=== PATIENT | male | born 1930 | race Caucasian/White ===

== ENCOUNTER 2020-04-08 21:27 | Inpatient (IN) | payer OTHER ==
[2020-04-08] MEDS ORDERED: SODIUM CHLORIDE 500 ML IV STA (21:42)
[2020-04-08] MEDS ORDERED: ACETAMINOPHEN 1000 MG/100 ML VIAL (NON FORMULARY) IVPB ONE (21:49)
[2020-04-08 22:30] LABS: BASO % 0.3 % (0-2.0); HEMOGLOBIN 10.7 GM/dL (11.7-16.9); LYMPH % 8.7 % (8-40); MCH 29.8 pg (25.7-33.7); MCHC 33.5 g/dl (32.0-35.9); MEAN CELL VOLUME 89.1 fl (80-96); MEAN PLT VOLUME 6.4 fl (7.5-11.1); MONO % 8.4 % (3.8-10.2); NEUT % 82.6 % (42.8-82.8); PLATELET COUNT 116 K/MM3 (134-434); RDW 13.4 % (11.9-15.9); WHITE BLOOD COUNT 4.7 K/mm3 (4.0-10.0)
[2020-04-08 22:55] LABS: CHLORIDE 109 mmol/L (98-107); POTASSIUM 4.4 mmol/L (3.5-5.1); SODIUM 138 mmol/L (136-145)
[2020-04-08 22:58] LABS: ALBUMIN 3.2 g/dl (3.4-5.0); ANION GAP 13 MMOL/L (8-16); BLOOD UREA NITROGEN 23.8 mg/dL (7-18); CO2 16 mmol/L (21-32); GLUCOSE,RANDOM 185 mg/dL (74-106); MAGNESIUM 1.9 mg/dL (1.8-2.4)
[2020-04-08 23:01] LABS: CREATININE 1.6 mg/dL (0.55-1.3); SGOT/AST 39 U/L (15-37); SGPT/ALT 35 U/L (13-61)
[2020-04-08 23:02] LABS: LDH 281 U/L (87-246)
[2020-04-08 23:03] LABS: BILIRUBIN,TOTAL 0.3 mg/dL (0.2-1); TOT PROT 6.4 g/dl (6.4-8.2)
[2020-04-08 23:07] LABS: ALK PHOS 36 U/L (45-117)
[2020-04-08 23:25] LABS: INR 1.38 (0.83-1.09); PROTHROMBIN TIME (PATIENT) 16.5 SEC (9.7-13.0)
[2020-04-08 23:28] LABS: ACTIVATED PTT 29.1 SECONDS (25.2-36.5)
[2020-04-09] MEDS ORDERED: SODIUM CHLORIDE 500 ML IV STA (00:22)
[2020-04-09] MEDS ORDERED: DEXAMETHASONE SOD PHOSPHATE 10 MG/1 ML VIAL IVPUSH ONE (00:24)
[2020-04-09] MEDS ORDERED: DEXAMETHASONE SOD PHOSPHATE 10 MG/1 ML VIAL ONE (01:02)
[2020-04-09] MEDS: INSULIN SLIDING SCALE (NOVOLOG) 1 VIAL SQ SCH ×3 (04:32→17:45)
[2020-04-09 04:56] LABS: EPI CELLS 4 /uL (0-25.1); HYALINE CASTS 1 /uL (0-3.1); URINE APPEARANCE CLEAR; URINE BACTERIA 43 /uL (0-1359); URINE BILIRUBIN NEGATIVE (NEGATIVE); URINE COLOR YELLOW; URINE GLUCOSE (UA) NEGATIVE (NEGATIVE); URINE KETONE NEGATIVE (NEGATIVE); URINE LEUK ESTERASE NEGATIVE (NEGATIVE); URINE NITRITE NEGATIVE (NEGATIVE); URINE PROTEIN 1+ (NEGATIVE); URINE RBC 10 /uL (0-23.9); URINE UROBILINOGEN 0.2 mg/dL (0.2-1.0); URINE WBC 3 /uL (0-25.8)
[2020-04-09 10:42] LABS: BASO % 0.3 % (0-2.0); HEMOGLOBIN 11.6 GM/dL (11.7-16.9); LYMPH % 9.8 % (8-40); MCH 29.8 pg (25.7-33.7); MCHC 33.2 g/dl (32.0-35.9); MEAN CELL VOLUME 89.6 fl (80-96); MEAN PLT VOLUME 6.4 fl (7.5-11.1); MONO % 3.8 % (3.8-10.2); NEUT % 86.1 % (42.8-82.8); PLATELET COUNT 115 K/MM3 (134-434); RBC 3.91 M/mm3 (4.00-5.60); RDW 13.5 % (11.9-15.9)
[2020-04-09 11:10] LABS: POTASSIUM 4.5 mmol/L (3.5-5.1)
[2020-04-09 11:16] LABS: ALBUMIN 3.2 g/dl (3.4-5.0); BLOOD UREA NITROGEN 20.2 mg/dL (7-18); CALCIUM 8.2 mg/dL (8.5-10.1)
[2020-04-09 11:18] LABS: CREATININE 1.3 mg/dL (0.55-1.3)
[2020-04-09 11:20] LABS: BILIRUBIN,TOTAL 0.4 mg/dL (0.2-1); TOT PROT 6.8 g/dl (6.4-8.2)
[2020-04-09] MEDS: ENOXAPARIN NA (PORCINE) 40 MG/0.4 ML DISP.SYRIN SQ SCH (12:23)
[2020-04-09] MEDS ORDERED: REMDESIVIR 200 MG in SODIUM CHLORIDE 210 ML IVPB ONE (16:00)
[2020-04-09] MEDS ORDERED: SODIUM CHLORIDE 1,000 ML IV SCH (16:15)
[2020-04-10] MEDS ORDERED: ACETAMINOPHEN 325 MG TABLET (FP) PO PRN (00:41)
[2020-04-10] MEDS: INSULIN SLIDING SCALE (NOVOLOG) 1 VIAL SQ SCH ×5 (01:05→21:36)
[2020-04-10 08:39] LABS: HEMATOCRIT 33.7 % (35.4-49); HEMOGLOBIN 11.6 GM/dL (11.7-16.9); MCH 30.1 pg (25.7-33.7); MCHC 34.3 g/dl (32.0-35.9); MEAN CELL VOLUME 87.6 fl (80-96); MEAN PLT VOLUME 6.6 fl (7.5-11.1); PLATELET COUNT 126 K/MM3 (134-434); RBC 3.84 M/mm3 (4.00-5.60); RDW 13.1 % (11.9-15.9); WHITE BLOOD COUNT 6.1 K/mm3 (4.0-10.0)
[2020-04-10 08:56] LABS: CHLORIDE 108 mmol/L (98-107); POTASSIUM 3.8 mmol/L (3.5-5.1); SODIUM 140 mmol/L (136-145)
[2020-04-10 09:04] LABS: ALBUMIN 3.2 g/dl (3.4-5.0); ANION GAP 8 MMOL/L (8-16); BLOOD UREA NITROGEN 16.1 mg/dL (7-18); CALCIUM 8.4 mg/dL (8.5-10.1); CO2 24 mmol/L (21-32); GLUCOSE,RANDOM 172 mg/dL (74-106)
[2020-04-10 09:07] LABS: ALK PHOS 39 U/L (45-117); CREATININE 0.9 mg/dL (0.55-1.3); PHOSPHOROUS 2.5 mg/dL (2.5-4.9); SGOT/AST 70 U/L (15-37); SGPT/ALT 45 U/L (13-61)
[2020-04-10 09:08] LABS: LDH 242 U/L (87-246)
[2020-04-10 09:09] LABS: BILIRUBIN,TOTAL 0.5 mg/dL (0.2-1); TOT PROT 6.6 g/dl (6.4-8.2)
[2020-04-10] MEDS: PANTOPRAZOLE 40 MG TABLET PO SCH (10:25)
[2020-04-10] MEDS: ENOXAPARIN NA (PORCINE) 40 MG/0.4 ML DISP.SYRIN SQ SCH (10:26)
[2020-04-10] MEDS: DEXAMETHASONE SOD PHOSPHATE 4 MG/1 ML VIAL IVPUSH SCH (10:26)
[2020-04-10] MEDS ORDERED: ALBUTEROL SO4 HFA INHALER IH PRN (11:02)
[2020-04-10] MEDS: amLODIPine BESYLATE 10 MG TABLET (FP) PO SCH (11:50)
[2020-04-10] MEDS: LOSARTAN POTASSIUM 50 MG TABLET PO SCH (11:50)
[2020-04-10] MEDS: REMDESIVIR 100 MG in SODIUM CHLORIDE 230 ML IVPB SCH (15:39)
[2020-04-10] MEDS: LACTATED RINGERS SOLUTION 1,000 ML/1,000 ML INFUS.BAG IV SCH (15:48)
[2020-04-11] MEDS: INSULIN SLIDING SCALE (NOVOLOG) 1 VIAL SQ SCH ×4 (06:01→21:56)
[2020-04-11 07:38] LABS: BASO % 0.1 % (0-2.0); HEMATOCRIT 33.7 % (35.4-49); HEMOGLOBIN 11.5 GM/dL (11.7-16.9); LYMPH % 6.6 % (8-40); MCHC 34.1 g/dl (32.0-35.9); MEAN CELL VOLUME 87.9 fl (80-96); MEAN PLT VOLUME 6.7 fl (7.5-11.1); MONO % 6.3 % (3.8-10.2); PLATELET COUNT 132 K/MM3 (134-434); RBC 3.83 M/mm3 (4.00-5.60); RDW 13.7 % (11.9-15.9); WHITE BLOOD COUNT 6.5 K/mm3 (4.0-10.0)
[2020-04-11 08:02] LABS: CALCIUM 8.5 mg/dL (8.5-10.1)
[2020-04-11 08:03] LABS: ALBUMIN 2.9 g/dl (3.4-5.0); BLOOD UREA NITROGEN 21.6 mg/dL (7-18)
[2020-04-11 08:04] LABS: BILIRUBIN,TOTAL 0.5 mg/dL (0.2-1)
[2020-04-11 08:05] LABS: TOT PROT 6.3 g/dl (6.4-8.2)
[2020-04-11 08:06] LABS: CREATININE 0.8 mg/dL (0.55-1.3); PHOSPHOROUS 3.3 mg/dL (2.5-4.9)
[2020-04-11] MEDS: DEXAMETHASONE SOD PHOSPHATE 4 MG/1 ML VIAL IVPUSH SCH (09:22)
[2020-04-11] MEDS: amLODIPine BESYLATE 10 MG TABLET (FP) PO SCH (09:22)
[2020-04-11] MEDS: PANTOPRAZOLE 40 MG TABLET PO SCH (09:22)
[2020-04-11] MEDS: LOSARTAN POTASSIUM 50 MG TABLET PO SCH (09:22)
[2020-04-11] MEDS: ENOXAPARIN NA (PORCINE) 40 MG/0.4 ML DISP.SYRIN SQ SCH (09:22)
[2020-04-11] MEDS: LACTATED RINGERS SOLUTION 1,000 ML/1,000 ML INFUS.BAG IV SCH (14:30)
[2020-04-11] MEDS: REMDESIVIR 100 MG in SODIUM CHLORIDE 230 ML IVPB SCH (17:00)
[2020-04-12] MEDS: INSULIN SLIDING SCALE (NOVOLOG) 1 VIAL SQ SCH ×4 (06:32→21:20)
[2020-04-12] MEDS: LACTATED RINGERS SOLUTION 1,000 ML/1,000 ML INFUS.BAG IV SCH (06:39)
[2020-04-12 08:56] LABS: HEMATOCRIT 34.5 % (35.4-49); HEMOGLOBIN 11.9 GM/dL (11.7-16.9); LYMPH % 3.7 % (8-40); MCH 29.9 pg (25.7-33.7); MCHC 34.5 g/dl (32.0-35.9); MEAN CELL VOLUME 86.6 fl (80-96); MEAN PLT VOLUME 6.8 fl (7.5-11.1); MONO % 4.7 % (3.8-10.2); NEUT % 91.6 % (42.8-82.8); PLATELET COUNT 151 K/MM3 (134-434); RBC 3.98 M/mm3 (4.00-5.60); RDW 13.2 % (11.9-15.9); WHITE BLOOD COUNT 9.4 K/mm3 (4.0-10.0)
[2020-04-12 09:50] LABS: ALBUMIN 2.8 g/dl (3.4-5.0); BLOOD UREA NITROGEN 23.3 mg/dL (7-18); CALCIUM 8.5 mg/dL (8.5-10.1)
[2020-04-12 09:51] LABS: MAGNESIUM 2.2 mg/dL (1.8-2.4)
[2020-04-12 09:52] LABS: PHOSPHOROUS 2.6 mg/dL (2.5-4.9)
[2020-04-12 09:53] LABS: CREATININE 0.8 mg/dL (0.55-1.3)
[2020-04-12 09:54] LABS: BILIRUBIN,TOTAL 0.5 mg/dL (0.2-1); TOT PROT 6.2 g/dl (6.4-8.2)
[2020-04-12] MEDS: PANTOPRAZOLE 40 MG TABLET PO SCH (10:15)
[2020-04-12] MEDS: DEXAMETHASONE SOD PHOSPHATE 4 MG/1 ML VIAL IVPUSH SCH (10:15)
[2020-04-12] MEDS: ENOXAPARIN NA (PORCINE) 40 MG/0.4 ML DISP.SYRIN SQ SCH (10:15)
[2020-04-12] MEDS: LOSARTAN POTASSIUM 50 MG TABLET PO SCH (10:15)
[2020-04-12] MEDS: amLODIPine BESYLATE 10 MG TABLET (FP) PO SCH (10:15)
[2020-04-12 10:40] LABS: POTASSIUM 4.1 mmol/L (3.5-5.1)
[2020-04-12 11:15] LABS: ANISOCYTOSIS 0; MACROCYTOSIS 0; PLATELET ESTIMATE DECREASED
[2020-04-12] MEDS ORDERED: PT OWN MED DRAWER 7, Y5N ONE (16:06)
[2020-04-12] MEDS: REMDESIVIR 100 MG in SODIUM CHLORIDE 230 ML IVPB SCH (17:03)
[2020-04-12] MEDS: INSULIN (LEVEMIR) 100 UNITS/ML UNITS SQ SCH (21:20)
[2020-04-13 00:50] LABS: EPI CELLS 4 /uL (0-25.1); HYALINE CASTS 0 /uL (0-3.1); URINE APPEARANCE CLEAR; URINE BACTERIA 4207 /uL (0-1359); URINE BILIRUBIN NEGATIVE (NEGATIVE); URINE COLOR YELLOW; URINE GLUCOSE (UA) 2+ (NEGATIVE); URINE KETONE NEGATIVE (NEGATIVE); URINE LEUK ESTERASE NEGATIVE (NEGATIVE); URINE NITRITE NEGATIVE (NEGATIVE); URINE PROTEIN 1+ (NEGATIVE); URINE RBC 2 /uL (0-23.9); URINE WBC 4 /uL (0-25.8)
[2020-04-13] MEDS: INSULIN SLIDING SCALE (NOVOLOG) 1 VIAL SQ SCH ×4 (06:13→21:48)
[2020-04-13] MEDS: INSULIN (LEVEMIR) 100 UNITS/ML UNITS SQ SCH ×2 (06:15→21:44)
[2020-04-13 07:02] LABS: HEMATOCRIT 35.4 % (35.4-49); HEMOGLOBIN 12.1 GM/dL (11.7-16.9); LYMPH % 4.4 % (8-40); MCH 29.8 pg (25.7-33.7); MCHC 34.2 g/dl (32.0-35.9); MEAN CELL VOLUME 87.1 fl (80-96); MEAN PLT VOLUME 6.7 fl (7.5-11.1); NEUT % 90.6 % (42.8-82.8); PLATELET COUNT 170 K/MM3 (134-434); RBC 4.06 M/mm3 (4.00-5.60); RDW 13.4 % (11.9-15.9); WHITE BLOOD COUNT 10.3 K/mm3 (4.0-10.0)
[2020-04-13 07:20] LABS: POTASSIUM 3.8 mmol/L (3.5-5.1)
[2020-04-13 07:27] LABS: ALBUMIN 2.8 g/dl (3.4-5.0); CALCIUM 8.2 mg/dL (8.5-10.1); MAGNESIUM 2.2 mg/dL (1.8-2.4)
[2020-04-13 07:29] LABS: CREATININE 0.8 mg/dL (0.55-1.3)
[2020-04-13 07:30] LABS: PHOSPHOROUS 2.6 mg/dL (2.5-4.9)
[2020-04-13 07:31] LABS: BILIRUBIN,TOTAL 0.6 mg/dL (0.2-1); TOT PROT 6.2 g/dl (6.4-8.2)
[2020-04-13] MEDS: LOSARTAN POTASSIUM 50 MG TABLET PO SCH (09:50)
[2020-04-13] MEDS: PANTOPRAZOLE 40 MG TABLET PO SCH (09:50)
[2020-04-13] MEDS: DEXAMETHASONE SOD PHOSPHATE 4 MG/1 ML VIAL IVPUSH SCH (09:51)
[2020-04-13] MEDS: ENOXAPARIN NA (PORCINE) 40 MG/0.4 ML DISP.SYRIN SQ SCH (09:52)
[2020-04-13] MEDS: amLODIPine BESYLATE 10 MG TABLET (FP) PO SCH (09:53)
[2020-04-13] MEDS ORDERED: ALBUTEROL SO4 HFA INHALER IH PRN (12:39)
[2020-04-13] MEDS ORDERED: ACETAMINOPHEN 325 MG TABLET (FP) PO PRN (12:39)
[2020-04-13] MEDS ORDERED: REMDESIVIR 100 MG in SODIUM CHLORIDE 230 ML IVPB SCH (16:00)
[2020-04-13] MEDS: REMDESIVIR 100 MG in SODIUM CHLORIDE 230 ML IVPB SCH (16:47)
[2020-04-14] MEDS: INSULIN (LEVEMIR) 100 UNITS/ML UNITS SQ SCH ×2 (06:10→22:25)
[2020-04-14] MEDS: INSULIN SLIDING SCALE (NOVOLOG) 1 VIAL SQ SCH ×4 (06:11→22:24)
[2020-04-14] MEDS: DEXAMETHASONE SOD PHOSPHATE 4 MG/1 ML VIAL IVPUSH SCH (10:16)
[2020-04-14] MEDS: PANTOPRAZOLE 40 MG TABLET PO SCH (10:16)
[2020-04-14] MEDS: LOSARTAN POTASSIUM 50 MG TABLET PO SCH (10:16)
[2020-04-14] MEDS: amLODIPine BESYLATE 10 MG TABLET (FP) PO SCH (10:16)
[2020-04-14] MEDS: ENOXAPARIN NA (PORCINE) 40 MG/0.4 ML DISP.SYRIN SQ SCH (10:16)
[2020-04-15] MEDS: INSULIN SLIDING SCALE (NOVOLOG) 1 VIAL SQ SCH ×4 (06:29→21:20)
[2020-04-15] MEDS: INSULIN (LEVEMIR) 100 UNITS/ML UNITS SQ SCH ×2 (06:29→21:20)
[2020-04-15 08:24] LABS: HEMATOCRIT 38.1 % (35.4-49); HEMOGLOBIN 13.2 GM/dL (11.7-16.9); MCH 29.9 pg (25.7-33.7); MCHC 34.7 g/dl (32.0-35.9); MEAN CELL VOLUME 86.2 fl (80-96); PLATELET COUNT 247 K/MM3 (134-434); RBC 4.42 M/mm3 (4.00-5.60); RDW 13.5 % (11.9-15.9); WHITE BLOOD COUNT 10.4 K/mm3 (4.0-10.0)
[2020-04-15 08:41] LABS: POTASSIUM 4.5 mmol/L (3.5-5.1)
[2020-04-15 08:48] LABS: ALBUMIN 2.9 g/dl (3.4-5.0)
[2020-04-15 08:49] LABS: BLOOD UREA NITROGEN 27.6 mg/dL (7-18); CALCIUM 8.7 mg/dL (8.5-10.1)
[2020-04-15 08:50] LABS: MAGNESIUM 2.5 mg/dL (1.8-2.4)
[2020-04-15 08:52] LABS: PHOSPHOROUS 3.1 mg/dL (2.5-4.9)
[2020-04-15 08:54] LABS: BILIRUBIN,TOTAL 0.6 mg/dL (0.2-1); CREATININE 0.9 mg/dL (0.55-1.3); TOT PROT 6.6 g/dl (6.4-8.2)
[2020-04-15] MEDS ORDERED: PT OWN MED DRAWER 7, Y5N ONE (10:20)
[2020-04-15] MEDS: DEXAMETHASONE SOD PHOSPHATE 4 MG/1 ML VIAL IVPUSH SCH (10:31)
[2020-04-15] MEDS: ENOXAPARIN NA (PORCINE) 40 MG/0.4 ML DISP.SYRIN SQ SCH (10:31)
[2020-04-15] MEDS: LOSARTAN POTASSIUM 50 MG TABLET PO SCH (10:32)
[2020-04-15] MEDS: amLODIPine BESYLATE 10 MG TABLET (FP) PO SCH (10:32)
[2020-04-15] MEDS: PANTOPRAZOLE 40 MG TABLET PO SCH (10:32)
[2020-04-15 16:31] VITALS: BMI 26.6
[2020-04-16] MEDS: INSULIN (LEVEMIR) 100 UNITS/ML UNITS SQ SCH ×2 (06:22→21:15)
[2020-04-16] MEDS: INSULIN SLIDING SCALE (NOVOLOG) 1 VIAL SQ SCH ×4 (06:22→21:15)
[2020-04-16] MEDS: PANTOPRAZOLE 40 MG TABLET PO SCH (09:33)
[2020-04-16] MEDS: amLODIPine BESYLATE 10 MG TABLET (FP) PO SCH (09:33)
[2020-04-16] MEDS: DEXAMETHASONE SOD PHOSPHATE 4 MG/1 ML VIAL IVPUSH SCH (09:34)
[2020-04-16] MEDS: LOSARTAN POTASSIUM 50 MG TABLET PO SCH (09:34)
[2020-04-16] MEDS: ENOXAPARIN NA (PORCINE) 40 MG/0.4 ML DISP.SYRIN SQ SCH (09:34)
[2020-04-17] MEDS: INSULIN (LEVEMIR) 100 UNITS/ML UNITS SQ SCH ×2 (06:10→22:28)
[2020-04-17] MEDS: INSULIN SLIDING SCALE (NOVOLOG) 1 VIAL SQ SCH ×4 (06:11→22:27)
[2020-04-17] MEDS ORDERED: INSULIN (NOVOLOG) ASPART 100 UNITS/ML 10ML VIAL ONE ×2 (06:29→16:52)
[2020-04-17] MEDS: ENOXAPARIN NA (PORCINE) 40 MG/0.4 ML DISP.SYRIN SQ SCH (10:54)
[2020-04-17] MEDS: DEXAMETHASONE SOD PHOSPHATE 4 MG/1 ML VIAL IVPUSH SCH (10:55)
[2020-04-17] MEDS: LOSARTAN POTASSIUM 50 MG TABLET PO SCH (10:55)
[2020-04-17] MEDS: amLODIPine BESYLATE 10 MG TABLET (FP) PO SCH (10:56)
[2020-04-17] MEDS: PANTOPRAZOLE 40 MG TABLET PO SCH (10:56)
[2020-04-18] MEDS: INSULIN SLIDING SCALE (NOVOLOG) 1 VIAL SQ SCH ×4 (06:19→21:35)
[2020-04-18] MEDS: INSULIN (LEVEMIR) 100 UNITS/ML UNITS SQ SCH ×2 (06:20→21:36)
[2020-04-18 08:53] LABS: HEMATOCRIT 38.3 % (35.4-49); HEMOGLOBIN 13.1 GM/dL (11.7-16.9); MCH 29.6 pg (25.7-33.7); MCHC 34.2 g/dl (32.0-35.9); MEAN CELL VOLUME 86.4 fl (80-96); MEAN PLT VOLUME 6.6 fl (7.5-11.1); PLATELET COUNT 271 K/MM3 (134-434); RBC 4.43 M/mm3 (4.00-5.60); RDW 13.1 % (11.9-15.9)
[2020-04-18 09:00] LABS: POTASSIUM 4.4 mmol/L (3.5-5.1)
[2020-04-18 09:04] LABS: ALBUMIN 2.7 g/dl (3.4-5.0); BLOOD UREA NITROGEN 29.8 mg/dL (7-18); CALCIUM 8.7 mg/dL (8.5-10.1)
[2020-04-18 09:09] LABS: BILIRUBIN,TOTAL 0.6 mg/dL (0.2-1); TOT PROT 6.3 g/dl (6.4-8.2)
[2020-04-18] MEDS ORDERED: PT OWN MED DRAWER 7, Y5N ONE ×2 (09:11→12:32)
[2020-04-18] MEDS: ENOXAPARIN NA (PORCINE) 40 MG/0.4 ML DISP.SYRIN SQ SCH (09:15)
[2020-04-18] MEDS: amLODIPine BESYLATE 10 MG TABLET (FP) PO SCH (09:16)
[2020-04-18] MEDS: PANTOPRAZOLE 40 MG TABLET PO SCH (09:16)
[2020-04-18] MEDS: LOSARTAN POTASSIUM 50 MG TABLET PO SCH (09:16)
[2020-04-18] MEDS: DEXAMETHASONE SOD PHOSPHATE 4 MG/1 ML VIAL IVPUSH SCH (09:16)
[2020-04-18] MEDS: BUDESONIDE/FORMETEROL FUMARATE 160/4.5 mcg INHALER IH SCH ×2 (12:35→21:30)
[2020-04-18] MEDS: ALBUTEROL SO4 HFA INHALER IH SCH ×3 (12:50→21:30)
[2020-04-19] MEDS: INSULIN SLIDING SCALE (NOVOLOG) 1 VIAL SQ SCH ×4 (06:36→21:58)
[2020-04-19] MEDS: INSULIN (LEVEMIR) 100 UNITS/ML UNITS SQ SCH ×2 (06:36→21:58)
[2020-04-19 07:47] LABS: HEMOGLOBIN 13.5 GM/dL (11.7-16.9); MCH 29.9 pg (25.7-33.7); MCHC 33.9 g/dl (32.0-35.9); MEAN CELL VOLUME 88.3 fl (80-96); MEAN PLT VOLUME 6.5 fl (7.5-11.1); PLATELET COUNT 252 K/MM3 (134-434); RBC 4.53 M/mm3 (4.00-5.60); RDW 13.4 % (11.9-15.9); WHITE BLOOD COUNT 14.7 K/mm3 (4.0-10.0)
[2020-04-19 08:11] LABS: POTASSIUM 5.3 mmol/L (3.5-5.1)
[2020-04-19 08:13] LABS: ALBUMIN 2.8 g/dl (3.4-5.0); BLOOD UREA NITROGEN 31.4 mg/dL (7-18); CALCIUM 9.1 mg/dL (8.5-10.1); MAGNESIUM 2.5 mg/dL (1.8-2.4)
[2020-04-19 08:16] LABS: CREATININE 1.1 mg/dL (0.55-1.3)
[2020-04-19 08:18] LABS: BILIRUBIN,TOTAL 0.6 mg/dL (0.2-1); TOT PROT 6.5 g/dl (6.4-8.2)
[2020-04-19] MEDS: ALBUTEROL SO4 HFA INHALER IH SCH ×4 (08:30→21:57)
[2020-04-19] MEDS ORDERED: PT OWN MED DRAWER 7, Y5N ONE (10:45)
[2020-04-19] MEDS: ENOXAPARIN NA (PORCINE) 40 MG/0.4 ML DISP.SYRIN SQ SCH (10:51)
[2020-04-19] MEDS: DEXAMETHASONE SOD PHOSPHATE 4 MG/1 ML VIAL IVPUSH SCH (10:51)
[2020-04-19] MEDS: amLODIPine BESYLATE 10 MG TABLET (FP) PO SCH (10:52)
[2020-04-19] MEDS: PANTOPRAZOLE 40 MG TABLET PO SCH (10:52)
[2020-04-19] MEDS: BUDESONIDE/FORMETEROL FUMARATE 160/4.5 mcg INHALER IH SCH ×2 (10:52→21:58)
[2020-04-19] MEDS: LOSARTAN POTASSIUM 50 MG TABLET PO SCH (10:52)
[2020-04-19] MEDS ORDERED: ALBUTEROL SO4 0.042% IH SOL 1.25 MG/3 ML VIAL.NEB NEB ONE (12:33)
[2020-04-19] MEDS ORDERED: SODIUM ZIRCONIUM CYCLOSILICATE (LOKELMA) 10 GM PACKET PO ONE (13:25)
[2020-04-19] MEDS ORDERED: SODIUM CHLORIDE 0.45% 1,000 ML IV SCH (13:30)
[2020-04-19] MEDS: AMINO ACIDS/PROTEIN HYDROLYS 30 ML LIQUID.PKT PO SCH (17:27)
[2020-04-20] MEDS: INSULIN SLIDING SCALE (NOVOLOG) 1 VIAL SQ SCH ×4 (06:21→21:21)
[2020-04-20] MEDS: INSULIN (LEVEMIR) 100 UNITS/ML UNITS SQ SCH ×2 (06:21→21:22)
[2020-04-20 09:03] LABS: POTASSIUM 4.2 mmol/L (3.5-5.1)
[2020-04-20 09:15] LABS: CALCIUM 8.5 mg/dL (8.5-10.1)
[2020-04-20 09:17] LABS: ALBUMIN 2.4 g/dl (3.4-5.0); BLOOD UREA NITROGEN 33.4 mg/dL (7-18)
[2020-04-20 09:20] LABS: CREATININE 0.9 mg/dL (0.55-1.3)
[2020-04-20 09:22] LABS: TOT PROT 5.6 g/dl (6.4-8.2)
[2020-04-20] MEDS: AMINO ACIDS/PROTEIN HYDROLYS 30 ML LIQUID.PKT PO SCH ×2 (09:48→17:17)
[2020-04-20] MEDS: ENOXAPARIN NA (PORCINE) 40 MG/0.4 ML DISP.SYRIN SQ SCH (09:49)
[2020-04-20] MEDS: ALBUTEROL SO4 HFA INHALER IH SCH ×4 (09:49→21:22)
[2020-04-20] MEDS: DEXAMETHASONE SOD PHOSPHATE 4 MG/1 ML VIAL IVPUSH SCH (09:49)
[2020-04-20] MEDS: amLODIPine BESYLATE 10 MG TABLET (FP) PO SCH (09:49)
[2020-04-20] MEDS: BUDESONIDE/FORMETEROL FUMARATE 160/4.5 mcg INHALER IH SCH ×2 (09:50→21:23)
[2020-04-20] MEDS: MULTIVITAMINS THER W-MINERALS COMBO TABLET (FP) PO SCH (09:50)
[2020-04-20] MEDS: PANTOPRAZOLE 40 MG TABLET PO SCH (09:50)
[2020-04-20] MEDS ORDERED: cefTRIAXone SODIUM 1 GM VIAL ONE (13:42)
[2020-04-20] MEDS ORDERED: DEXTROSE 5%-WATER - 50 ML IVPB ONE (13:43)
[2020-04-20] MEDS: CEFTRIAXONE 1 GM in DEXTROSE 5%-WATER - 50 ML IVPB SCH (14:01)
[2020-04-20] MEDS ORDERED: PT OWN MED DRAWER 7, Y5N ONE (20:44)
[2020-04-20] MEDS ORDERED: DOXYCYCLINE INJECTION 100 MG in DEXTROSE 5%-WATER - 100 ML IVPB SCH (22:00)
[2020-04-21] MEDS: INSULIN SLIDING SCALE (NOVOLOG) 1 VIAL SQ SCH ×4 (06:36→21:45)
[2020-04-21] MEDS: INSULIN (LEVEMIR) 100 UNITS/ML UNITS SQ SCH ×2 (06:37→21:45)
[2020-04-21 08:51] LABS: HEMATOCRIT 37.9 % (35.4-49); HEMOGLOBIN 12.7 GM/dL (11.7-16.9); MCH 29.5 pg (25.7-33.7); MCHC 33.6 g/dl (32.0-35.9); MEAN CELL VOLUME 87.6 fl (80-96); MEAN PLT VOLUME 7.3 fl (7.5-11.1); PLATELET COUNT 196 K/MM3 (134-434); RBC 4.32 M/mm3 (4.00-5.60); RDW 13.2 % (11.9-15.9); WHITE BLOOD COUNT 10.1 K/mm3 (4.0-10.0)
[2020-04-21 09:18] LABS: CHLORIDE 102 mmol/L (98-107); POTASSIUM 4.8 mmol/L (3.5-5.1); SODIUM 138 mmol/L (136-145)
[2020-04-21 09:21] LABS: CALCIUM 8.7 mg/dL (8.5-10.1)
[2020-04-21 09:22] LABS: ALBUMIN 2.5 g/dl (3.4-5.0); ANION GAP 5 MMOL/L (8-16); BLOOD UREA NITROGEN 34.2 mg/dL (7-18); CO2 31 mmol/L (21-32); GLUCOSE,RANDOM 147 mg/dL (74-106)
[2020-04-21 09:25] LABS: SGOT/AST 17 U/L (15-37); SGPT/ALT 54 U/L (13-61)
[2020-04-21 09:26] LABS: BILIRUBIN,TOTAL 0.9 mg/dL (0.2-1); TOT PROT 5.9 g/dl (6.4-8.2)
[2020-04-21 09:27] LABS: ALK PHOS 42 U/L (45-117)
[2020-04-21 09:46] LABS: LDH 240 U/L (87-246)
[2020-04-21] MEDS ORDERED: PT OWN MED DRAWER 7, Y5N ONE (10:21)
[2020-04-21] MEDS ORDERED: DEXTROSE 5%-WATER - 50 ML IVPB ONE (10:21)
[2020-04-21] MEDS ORDERED: cefTRIAXone SODIUM 1 GM VIAL ONE (10:21)
[2020-04-21] MEDS: AMINO ACIDS/PROTEIN HYDROLYS 30 ML LIQUID.PKT PO SCH ×2 (10:43→17:33)
[2020-04-21] MEDS: ALBUTEROL SO4 HFA INHALER IH SCH ×4 (10:43→21:46)
[2020-04-21] MEDS: BUDESONIDE/FORMETEROL FUMARATE 160/4.5 mcg INHALER IH SCH ×2 (10:44→21:50)
[2020-04-21] MEDS: CEFTRIAXONE 1 GM in DEXTROSE 5%-WATER - 50 ML IVPB SCH (10:44)
[2020-04-21] MEDS: amLODIPine BESYLATE 10 MG TABLET (FP) PO SCH (10:44)
[2020-04-21] MEDS: DEXAMETHASONE SOD PHOSPHATE 4 MG/1 ML VIAL IVPUSH SCH (10:44)
[2020-04-21] MEDS: PANTOPRAZOLE 40 MG TABLET PO SCH (10:44)
[2020-04-21] MEDS: MULTIVITAMINS THER W-MINERALS COMBO TABLET (FP) PO SCH (10:44)
[2020-04-21] MEDS ORDERED: INSULIN (NOVOLOG) ASPART 100 UNITS/ML 10ML VIAL ONE (17:15)
[2020-04-22] MEDS: INSULIN SLIDING SCALE (NOVOLOG) 1 VIAL SQ SCH ×4 (06:07→22:46)
[2020-04-22] MEDS: INSULIN (LEVEMIR) 100 UNITS/ML UNITS SQ SCH ×2 (06:08→22:46)
[2020-04-22] MEDS: AMINO ACIDS/PROTEIN HYDROLYS 30 ML LIQUID.PKT PO SCH ×2 (08:19→17:12)
[2020-04-22] MEDS: ALBUTEROL SO4 HFA INHALER IH SCH ×4 (08:35→22:45)
[2020-04-22 09:25] LABS: HEMATOCRIT 41.6 % (35.4-49); HEMOGLOBIN 13.9 GM/dL (11.7-16.9); MCH 29.4 pg (25.7-33.7); MCHC 33.4 g/dl (32.0-35.9); MEAN CELL VOLUME 88.2 fl (80-96); MEAN PLT VOLUME 7.4 fl (7.5-11.1); PLATELET COUNT 203 K/MM3 (134-434); RBC 4.72 M/mm3 (4.00-5.60); RDW 13.6 % (11.9-15.9); WHITE BLOOD COUNT 13.2 K/mm3 (4.0-10.0)
[2020-04-22] MEDS ORDERED: cefTRIAXone SODIUM 1 GM VIAL ONE (10:28)
[2020-04-22] MEDS ORDERED: DEXTROSE 5%-WATER - 50 ML IVPB ONE (10:29)
[2020-04-22 10:30] LABS: POTASSIUM 4.8 mmol/L (3.5-5.1)
[2020-04-22 10:33] LABS: BLOOD UREA NITROGEN 34.5 mg/dL (7-18)
[2020-04-22 10:34] LABS: ALBUMIN 2.8 g/dl (3.4-5.0)
[2020-04-22 10:39] LABS: BILIRUBIN,TOTAL 0.8 mg/dL (0.2-1); TOT PROT 6.5 g/dl (6.4-8.2)
[2020-04-22] MEDS: PANTOPRAZOLE 40 MG TABLET PO SCH (10:39)
[2020-04-22] MEDS: amLODIPine BESYLATE 10 MG TABLET (FP) PO SCH (10:39)
[2020-04-22] MEDS: MULTIVITAMINS THER W-MINERALS COMBO TABLET (FP) PO SCH (10:40)
[2020-04-22] MEDS: BUDESONIDE/FORMETEROL FUMARATE 160/4.5 mcg INHALER IH SCH ×2 (10:41→22:47)
[2020-04-22] MEDS: DEXAMETHASONE SOD PHOSPHATE 4 MG/1 ML VIAL IVPUSH SCH (10:42)
[2020-04-22] MEDS: CEFTRIAXONE 1 GM in DEXTROSE 5%-WATER - 50 ML IVPB SCH (10:44)
[2020-04-23] MEDS: INSULIN SLIDING SCALE (NOVOLOG) 1 VIAL SQ SCH ×4 (06:57→21:25)
[2020-04-23] MEDS: INSULIN (LEVEMIR) 100 UNITS/ML UNITS SQ SCH ×2 (06:57→21:25)
[2020-04-23] MEDS: ALBUTEROL SO4 HFA INHALER IH SCH ×4 (08:08→21:25)
[2020-04-23] MEDS: AMINO ACIDS/PROTEIN HYDROLYS 30 ML LIQUID.PKT PO SCH ×2 (08:08→17:13)
[2020-04-23 08:39] LABS: BASO % 0.1 % (0-2.0); EOS % 0.1 % (0-4.5); HEMOGLOBIN 13.5 GM/dL (11.7-16.9); LYMPH % 3.7 % (8-40); MCH 29.8 pg (25.7-33.7); MCHC 34.5 g/dl (32.0-35.9); MEAN CELL VOLUME 86.3 fl (80-96); MEAN PLT VOLUME 6.7 fl (7.5-11.1); MONO % 5.3 % (3.8-10.2); NEUT % 90.8 % (42.8-82.8); PLATELET COUNT 210 K/MM3 (134-434); RBC 4.52 M/mm3 (4.00-5.60); RDW 13.1 % (11.9-15.9); WHITE BLOOD COUNT 10.3 K/mm3 (4.0-10.0)
[2020-04-23 09:13] LABS: POTASSIUM 4.3 mmol/L (3.5-5.1)
[2020-04-23 09:21] LABS: ALBUMIN 2.8 g/dl (3.4-5.0); BLOOD UREA NITROGEN 34.1 mg/dL (7-18)
[2020-04-23 09:23] LABS: BILIRUBIN,TOTAL 0.5 mg/dL (0.2-1); CALCIUM 8.9 mg/dL (8.5-10.1); TOT PROT 6.1 g/dl (6.4-8.2)
[2020-04-23] MEDS ORDERED: DEXTROSE 5%-WATER - 50 ML IVPB ONE (09:54)
[2020-04-23] MEDS ORDERED: cefTRIAXone SODIUM 1 GM VIAL ONE (09:54)
[2020-04-23] MEDS: amLODIPine BESYLATE 10 MG TABLET (FP) PO SCH (09:58)
[2020-04-23] MEDS: PANTOPRAZOLE 40 MG TABLET PO SCH (09:58)
[2020-04-23] MEDS: MULTIVITAMINS THER W-MINERALS COMBO TABLET (FP) PO SCH (09:58)
[2020-04-23] MEDS: CEFTRIAXONE 1 GM in DEXTROSE 5%-WATER - 50 ML IVPB SCH (09:59)
[2020-04-23] MEDS: BUDESONIDE/FORMETEROL FUMARATE 160/4.5 mcg INHALER IH SCH ×2 (10:00→21:26)
[2020-04-23] MEDS: DEXAMETHASONE SOD PHOSPHATE 4 MG/1 ML VIAL IVPUSH SCH (10:01)
[2020-04-24] MEDS: INSULIN (LEVEMIR) 100 UNITS/ML UNITS SQ SCH ×2 (06:03→21:42)
[2020-04-24] MEDS: INSULIN SLIDING SCALE (NOVOLOG) 1 VIAL SQ SCH ×4 (06:03→21:43)
[2020-04-24] MEDS: ALBUTEROL SO4 HFA INHALER IH SCH ×4 (08:15→21:05)
[2020-04-24 08:29] LABS: BASO % 0.1 % (0-2.0); EOS % 0.1 % (0-4.5); HEMATOCRIT 38.1 % (35.4-49); HEMOGLOBIN 13.2 GM/dL (11.7-16.9); LYMPH % 4.8 % (8-40); MCH 29.8 pg (25.7-33.7); MCHC 34.6 g/dl (32.0-35.9); MEAN CELL VOLUME 86.1 fl (80-96); MEAN PLT VOLUME 6.8 fl (7.5-11.1); MONO % 5.8 % (3.8-10.2); NEUT % 89.2 % (42.8-82.8); PLATELET COUNT 208 K/MM3 (134-434); RBC 4.43 M/mm3 (4.00-5.60); RDW 13.3 % (11.9-15.9); WHITE BLOOD COUNT 12.2 K/mm3 (4.0-10.0)
[2020-04-24 08:59] LABS: ALBUMIN 2.6 g/dl (3.4-5.0); BLOOD UREA NITROGEN 36.3 mg/dL (7-18)
[2020-04-24 09:00] LABS: CALCIUM 8.5 mg/dL (8.5-10.1)
[2020-04-24 09:01] LABS: BILIRUBIN,TOTAL 0.6 mg/dL (0.2-1); TOT PROT 5.9 g/dl (6.4-8.2)
[2020-04-24] MEDS ORDERED: PT OWN MED DRAWER 7, Y5N ONE (10:18)
[2020-04-24] MEDS: AMINO ACIDS/PROTEIN HYDROLYS 30 ML LIQUID.PKT PO SCH ×2 (10:37→17:48)
[2020-04-24] MEDS: PANTOPRAZOLE 40 MG TABLET PO SCH (10:39)
[2020-04-24] MEDS: DEXAMETHASONE SOD PHOSPHATE 4 MG/1 ML VIAL IVPUSH SCH (10:39)
[2020-04-24] MEDS: MULTIVITAMINS THER W-MINERALS COMBO TABLET (FP) PO SCH (10:39)
[2020-04-24] MEDS: amLODIPine BESYLATE 10 MG TABLET (FP) PO SCH (10:39)
[2020-04-24] MEDS: BUDESONIDE/FORMETEROL FUMARATE 160/4.5 mcg INHALER IH SCH ×2 (10:39→21:39)
[2020-04-25] MEDS: INSULIN (LEVEMIR) 100 UNITS/ML UNITS SQ SCH ×2 (06:07→22:10)
[2020-04-25] MEDS: INSULIN SLIDING SCALE (NOVOLOG) 1 VIAL SQ SCH ×4 (06:07→22:09)
[2020-04-25] MEDS ORDERED: PT OWN MED DRAWER 7, Y5N ONE (09:38)
[2020-04-25] MEDS ORDERED: predniSONE 10 MG TABLET (UD) PO SCH (10:00)
[2020-04-25] MEDS: ALBUTEROL SO4 HFA INHALER IH SCH ×4 (10:05→22:06)
[2020-04-25] MEDS: AMINO ACIDS/PROTEIN HYDROLYS 30 ML LIQUID.PKT PO SCH ×2 (10:05→17:52)
[2020-04-25] MEDS: amLODIPine BESYLATE 10 MG TABLET (FP) PO SCH (10:06)
[2020-04-25] MEDS: BUDESONIDE/FORMETEROL FUMARATE 160/4.5 mcg INHALER IH SCH ×2 (10:06→22:14)
[2020-04-25] MEDS: PANTOPRAZOLE 40 MG TABLET PO SCH (10:06)
[2020-04-25] MEDS: MULTIVITAMINS THER W-MINERALS COMBO TABLET (FP) PO SCH (10:06)
[2020-04-25] MEDS ORDERED: INSULIN (NOVOLOG) ASPART 100 UNITS/ML 10ML VIAL ONE (18:10)
[2020-04-26] MEDS: INSULIN SLIDING SCALE (NOVOLOG) 1 VIAL SQ SCH ×4 (06:08→21:35)
[2020-04-26] MEDS: INSULIN (LEVEMIR) 100 UNITS/ML UNITS SQ SCH ×2 (06:09→21:36)
[2020-04-26] MEDS: predniSONE 20 MG TABLET (UD) PO SCH (10:18)
[2020-04-26] MEDS: PANTOPRAZOLE 40 MG TABLET PO SCH (10:18)
[2020-04-26] MEDS: amLODIPine BESYLATE 10 MG TABLET (FP) PO SCH (10:18)
[2020-04-26] MEDS: MULTIVITAMINS THER W-MINERALS COMBO TABLET (FP) PO SCH (10:18)
[2020-04-26] MEDS: AMINO ACIDS/PROTEIN HYDROLYS 30 ML LIQUID.PKT PO SCH ×2 (10:18→16:51)
[2020-04-26] MEDS: BUDESONIDE/FORMETEROL FUMARATE 160/4.5 mcg INHALER IH SCH ×2 (10:22→21:32)
[2020-04-26] MEDS: ALBUTEROL SO4 HFA INHALER IH SCH ×4 (10:22→21:31)
[2020-04-26] MEDS ORDERED: PT OWN MED DRAWER 7, Y5N ONE (16:18)
[2020-04-27] MEDS: INSULIN SLIDING SCALE (NOVOLOG) 1 VIAL SQ SCH ×3 (06:18→16:54)
[2020-04-27] MEDS: INSULIN (LEVEMIR) 100 UNITS/ML UNITS SQ SCH (06:19)
[2020-04-27] MEDS: amLODIPine BESYLATE 10 MG TABLET (FP) PO SCH (08:59)
[2020-04-27] MEDS: predniSONE 20 MG TABLET (UD) PO SCH (08:59)
[2020-04-27] MEDS: ALBUTEROL SO4 HFA INHALER IH SCH ×3 (08:59→16:55)
[2020-04-27] MEDS: PANTOPRAZOLE 40 MG TABLET PO SCH (08:59)
[2020-04-27] MEDS: MULTIVITAMINS THER W-MINERALS COMBO TABLET (FP) PO SCH (08:59)
[2020-04-27] MEDS: AMINO ACIDS/PROTEIN HYDROLYS 30 ML LIQUID.PKT PO SCH ×2 (08:59→16:55)
[2020-04-27] MEDS: BUDESONIDE/FORMETEROL FUMARATE 160/4.5 mcg INHALER IH SCH (08:59)
[2020-04-27] MEDS ORDERED: PT OWN MED DRAWER 7, Y5N ONE (15:57)
[2020-04-27 20:59] VITALS: BP 134/89; PULSE 70; TEMP 98.3
== END 2020-04-27 22:17 | DRG 177 ==
LOC: JER 21:27 → JERBED 04-09 00:23 → J4W 04-09 07:11 → J4S 04-11 20:48 → J8W 04-13 11:56
PROVIDERS: ADMIT Internal Medicine; ATTEND Internal Medicine
PROC: XW033E5 Introduction of Remdesivir Anti-infective into Peripheral Vein, Percutaneous Approach, New Technology Group 5 (ICD-10-PCS; principal; 2020-04-09)
PROC: XW13325 Transfusion of Convalescent Plasma (Nonautologous) into Peripheral Vein, Percutaneous Approach, New Technology Group 5 (ICD-10-PCS; 2020-04-10)
DX: U07.1 COVID-19 (principal); J96.01 Acute respiratory failure with hypoxia; J12.82 Pneumonia due to coronavirus disease 2019; N17.9 Acute kidney failure, unspecified; M62.82 Rhabdomyolysis; R55 Syncope and collapse; I12.9 Hypertensive chronic kidney disease with stage 1 through stage 4 chronic kidney disease, or unspecified chronic kidney disease; E11.22 Type 2 diabetes mellitus with diabetic chronic kidney disease; N18.9 Chronic kidney disease, unspecified; E11.65 Type 2 diabetes mellitus with hyperglycemia; I25.10 Atherosclerotic heart disease of native coronary artery without angina pectoris; E86.0 Dehydration; L89.152 Pressure ulcer of sacral region, stage 2; J44.9 Chronic obstructive pulmonary disease, unspecified; E87.5 Hyperkalemia; K21.9 Gastro-esophageal reflux disease without esophagitis; Z95.1 Presence of aortocoronary bypass graft; Z85.46 Personal history of malignant neoplasm of prostate; Y92.098 Other place in other non-institutional residence as the place of occurrence of the external cause; W18.30XA Fall on same level, unspecified, initial encounter
CPT/HCPCS: 36415; 36430; 70450-TC; 70498-TC; 71045-TC-FY; 72125-TC; 72170-TC-FY; 80048; 80053; 80061; 81003; 82550; 82553; 82565; 82607; 82728; 82746; 82962; 83036; 83605; 83615; 83721; 83735; 84100; 84300; 84484; 85025; 85027; 85379; 85610; 85730; 86140; 86850; 86900; 86901; 87040; 87086; 87804; 93005; 93010; 93880-TC; 94761; 97116-GP; 97162-GP; 99285-25; C9399; C9803; J0131; J1100; P9017; Q9967; U0003